=== PATIENT | female | born 1970 | race Caucasian/White ===

== ENCOUNTER 2020-05-07 18:31 | Emergency (ER) | payer SELFPAY ==
[~2020-05-07] VITALS: Ht 167.6 cm; Wt 60.8 kg
[2020-05-07 18:34] VITALS: BP 120/80
[2020-05-07] MEDS ORDERED: PROPARACAINE OPHTH 0.5%, 15ML EACHEYE ONE (19:30)
[2020-05-07] MEDS ORDERED: FLUORESCEIN OPHTHALMIC 1 MG STRIP EACHEYE ONE (19:30)
[2020-05-07] MEDS ORDERED: FLUORESCEIN OPHTHALMIC 1 MG STRIP ONE ×2 (19:31→19:33)
[2020-05-07] MEDS ORDERED: PROPARACAINE OPHTH 0.5%, 15ML ONE ×2 (19:31→19:33)
[2020-05-07] MEDS ORDERED: DIPH,PERTUSS(ACELL),TET VAC/PF 0.5 ML IM-VACC ONE (20:30)
== END 2020-05-07 21:02 ==
LOC: ED 20:59
DX: T15.02XA Foreign body in cornea, left eye, initial encounter (principal); T15.01XA Foreign body in cornea, right eye, initial encounter; H16.011 Central corneal ulcer, right eye; W45.8XXA Other foreign body or object entering through skin, initial encounter; Y93.89 Activity, other specified; Y92.89 Other specified places as the place of occurrence of the external cause; Y99.8 Other external cause status
CPT/HCPCS: 99283